=== PATIENT | female | born 1960 | race African-American/Black ===

== ENCOUNTER 2022-12-14 06:56 | Inpatient (IN) | payer BC ==
[2022-12-10 11:43] LABS: BASOPHILS # (AUTO) 0.1 (0.0-0.1); BASOPHILS % 0.8 % (0.0-1.0); EOSINOPHILS # (AUTO) 0.1 (0.0-0.4); EOSINOPHILS % 1.8 % (0.0-6.0); HEMATOCRIT 43.4 % (34.2-44.1); HEMOGLOBIN 13.9 g/dL (12.0-16.0); LYMPHOCYTES # (AUTO) 1.8 (1.0-3.2); LYMPHOCYTES % 27.6 % (18.0-39.1); MEAN CORPUSCULAR HEMOGLOBIN 28.6 pg (28-32); MEAN CORPUSCULAR VOLUME 89.3 fL (81-99); MONOCYTES # (AUTO) 0.5 (0.2-0.8); MONOCYTES % 7.5 % (4.4-11.3); PLATELET COUNT 325 x10e3/uL (140-360); RED BLOOD COUNT 4.86 x10e6/uL (3.6-5.1); RED CELL DISTRIBUTION WIDTH 15.7 % (11.7-14.4)
[2022-12-10 12:00] LABS: ANION GAP 15.1 mmol/L (8-16); CALCIUM 10.2 mg/dL (8.4-10.2); CREATININE, SERUM 0.9 mg/dL (0.57-1.11); POTASSIUM 4.1 mmol/L (3.5-5.1)
[~2022-12-14] VITALS: Ht 175.3 cm; Wt 143.8 kg
[~2022-12-14 06:56] MED LIST: BYSTOLIC20 MG PO; DECARA1250 MCG PO; MULTI-VITAMIN1 EACH PO; OZEMPIC0.25 MG/0. SC; VITAMIN B-121000 MC1 PO
[2022-12-14] MEDS ORDERED: CEFAZOLIN SODIUM 2 GM ONE (07:53)
[2022-12-14] MEDS ORDERED: FAMOTIDINE 20 MG/2 ML VIAL IV ONE (08:14)
[2022-12-14] MEDS ORDERED: DEXMEDETOMIDINE HCL 2 ML ONE (08:14)
[2022-12-14] MEDS ORDERED: BUPIVACAINE 0.25% 30ML SDV ONE ×2 (09:02)
[2022-12-14] MEDS ORDERED: HYDROCODONE/APAP 7.5MG-325MG 1 EA TAB PO PRN (09:15)
[2022-12-14] MEDS ORDERED: FENTANYL CITRATE/PF 100MCG/2 ML INJ ONE ×2 (11:39→12:12)
[2022-12-14] MEDS ORDERED: MIDAZOLAM HCL 2 MG/2 ML VIAL ONE (12:12)
[2022-12-14] MEDS ORDERED: HYDROMORPHONE 1MG/1ML INJ ONE ×2 (12:58→14:21)
[2022-12-14] MEDS ORDERED: ONDANSETRON HCL INJ 2MG/ML 2ML 2 MG/ML VIAL ONE ×2 (12:58→13:07)
[2022-12-14] MEDS ORDERED: PROPOFOL IV EMULSION 10 MG/ML 20 ML VIAL ONE (13:07)
[2022-12-14] MEDS ORDERED: KETOROLAC TROMETHAMINE 30 MG/ML VIAL ONE (13:07)
[2022-12-14] MEDS ORDERED: GLYCOPYRROLATE INJ 0.2 MG/ML VIAL ONE (13:07)
[2022-12-14] MEDS ORDERED: NEOSTIGMINE 1 MG/ML 10ML VIAL ONE (13:07)
[2022-12-14] MEDS ORDERED: LIDOCAINE HCL 2% LOCAL INJ 5 ML SDV VIAL INJ ONE (13:07)
[2022-12-14] MEDS ORDERED: DEXAMETHASONE SOD PHOS INJ 4 MG/ML SDV ONE (13:07)
[2022-12-14] MEDS ORDERED: ROCURONIUM BROMIDE 10 MG/ML 5ML VIAL IV ONE (13:07)
[2022-12-14] MEDS ORDERED: SEVOFLURANE INHAL SOLN 250 ML PEN BTL ONE (13:07)
[2022-12-14] MEDS ORDERED: POVIDONE IODINE 0.05% 0.05 % ML PO ONE (13:07)
[2022-12-14] MEDS ORDERED: SUCCINYLCHOLINE CHLORIDE 20 MG/ML 10ML VIAL ONE (13:07)
[2022-12-14] MEDS ORDERED: SCOPOLAMINE 1 MG PATCH ONE (13:43)
[2022-12-14] MEDS ORDERED: SCOPOLAMINE 1 MG PATCH TOP SCH (14:00)
[2022-12-14] MEDS: ONDANSETRON HCL INJ 2MG/ML 2ML 2 MG/ML VIAL IV PRN ×2 (15:18→20:14)
[2022-12-14] MEDS: Morphine 2mg Syringe 2 MG/ML SYR IV PRN ×4 (15:28→23:08)
[2022-12-14 16:53] VITALS: BP 120/74
[2022-12-14 17:04] VITALS: BP 120/74
[2022-12-14 17:07] VITALS: BP 120/74
[2022-12-14] MEDS: SODIUM CHLORIDE 0.9% 1000ML 1,000 ML IV SCH ×2 (17:35→17:44)
[2022-12-14 19:50] VITALS: BP 137/67
[2022-12-14 20:00] VITALS: BP 137/67
[2022-12-14] MEDS: ENOXAPARIN SOD INJ 40 MG/0.4 ML SYR SC SCH (20:14)
[2022-12-15] VITALS: BP 148/84
[2022-12-15] MEDS: SODIUM CHLORIDE 0.9% 1000ML 1,000 ML IV SCH (01:18)
[2022-12-15] MEDS: ONDANSETRON HCL INJ 2MG/ML 2ML 2 MG/ML VIAL IV PRN (04:47)
[2022-12-15 04:50] VITALS: BP 161/98
[2022-12-15] MEDS: Morphine 2mg Syringe 2 MG/ML SYR IV PRN (04:50)
[2022-12-15 06:14] LABS: BASOPHILS % 0.2 % (0.0-1.0); HEMOGLOBIN 12.8 g/dL (12.0-16.0); LYMPHOCYTES # (AUTO) 1.1 (1.0-3.2); LYMPHOCYTES % 12.7 % (18.0-39.1); MEAN CORPUSCULAR HGB CONC 34.6 g/dL (31-35); MEAN CORPUSCULAR VOLUME 92.5 fL (81-99); MONOCYTES # (AUTO) 0.7 (0.2-0.8); MONOCYTES % 7.3 % (4.4-11.3); NEUTROPHILS # (AUTO) 7.1 (2.1-6.9); NEUTROPHILS % 79.5 % (38.7-80.0); PLATELET COUNT 214 x10e3/uL (140-360); RED CELL DISTRIBUTION WIDTH 18.9 % (11.7-14.4)
[2022-12-15 06:33] LABS: ALBUMIN 3.7 g/dL (3.5-5.0); ALBUMIN/GLOBULIN RATIO 1.2 (0.8-2.0); ANION GAP 13.9 mmol/L (8-16); CALCIUM 9.2 mg/dL (8.4-10.2); CREATININE, SERUM 0.76 mg/dL (0.57-1.11); MAGNESIUM 1.8 MG/DL (1.3-2.1); PHOSPHORUS 2.8 MG/DL (2.3-4.7); POTASSIUM 3.9 mmol/L (3.5-5.1)
[2022-12-15 08:00] VITALS: BP 126/68
[2022-12-15] MEDS: ENOXAPARIN SOD INJ 40 MG/0.4 ML SYR SC SCH (08:10)
[2022-12-15 09:00] VITALS: BP 126/68
[2022-12-15] MEDS ORDERED: NEBIVOLOL 10 MG TAB PO SCH (09:00)
== END 2022-12-15 11:49 | disposition home or self-care (01) | DRG 621 ==
LOC: OR 06:56 → PACU V 09:04 → MED/SURG3 14:31
PROVIDERS: ADMIT Internal Medicine; ATTEND Internal Medicine
PROC: 0DB64Z3 Excision of Stomach, Percutaneous Endoscopic Approach, Vertical (ICD-10-PCS; 2022-12-14)
PROC: 0DP64CZ Removal of Extraluminal Device from Stomach, Percutaneous Endoscopic Approach (ICD-10-PCS; principal; 2022-12-14 09:05)
DX: E66.01 Morbid (severe) obesity due to excess calories (principal); Z68.42 Body mass index [BMI] 45.0-49.9, adult; E11.9 Type 2 diabetes mellitus without complications; M19.91 Primary osteoarthritis, unspecified site; Z20.822 Contact with and (suspected) exposure to COVID-19; I11.9 Hypertensive heart disease without heart failure; Z98.84 Bariatric surgery status
CPT/HCPCS: 0223U; 36415; 80048; 80053; 82948; 83735; 84100; 85025; 93005; 94799; 96361; J0330; J0690; J1100; J1170; J1650; J1885; J2001; J2250; J2270; J2405; J2710; J3010; J7030